=== PATIENT | female | born 1975 | race Two or more races ===

== ENCOUNTER 2018-12-15 23:08 | Emergency (ER) | payer OTHER ==
[~2018-12-15] VITALS: Ht 177.8 cm; Wt 104.3 kg
--- NOTE | 2018-12-15 23:20 | NUR ---
Received pt. in bed 3 A/O x 4 speaking clearly in full complete sentences. Lying supine on gurney HOB elevated 45 degrees. Stated to this travel writer for the past 2 weeks has had mid pelvic pain that comes and goes and sharp and when it comes it is 10/10. Stated that she tried to see her primary MD but he is on vacation. Awaiting to be seen by Dr. Dimas.
[2018-12-16 00:41] LABS: *BILIRUBIN,URIN NEGATIVE (NEGATIVE); *BLOOD, URINE NEGATIVE (NEGATIVE); *CLARITY,URINE CLEAR (CLEAR); *COLOR,URINE YELLOW (YELLOW); *KETONES,URINE NEGATIVE (NEGATIVE); *UROBILINOGEN,URINE 0.2 E.U./dl (NORMAL); LEUKOCYTE ESTERASE ,URINE NEGATIVE (NEGATIVE); NITRITE, URINE NEGATIVE (NEGATIVE); UGLUCOSE NEGATIVE (NEGATIVE)
[2018-12-16 00:54] LABS: *URINE HCG, QUAL NEGATIVE (NEGATIVE)
[2018-12-16 00:56] LABS: BACTERIA,URINE MANY /HPF (NONE SEEN); RBC,URINE 0-3 /HPF (0-3); SQUAMOUS EPITHELIAL CELL,UR MANY /HPF (NONE SEEN); WBC,URINE 0-3 /HPF (0-3)
[2018-12-19 11:08] LABS: *GC NAA Negative (Negative); *TRIC.VAG. NAA Negative (Negative)
== END 2018-12-16 00:44 | disposition home or self-care (01) ==
LOC: EDBD 23:08 → ER 23:08
DX: N90.89 Other specified noninflammatory disorders of vulva and perineum (principal)
CPT/HCPCS: 36415; 84703; 86592; 86803; 87491; 87536; 87806; A4663

== ENCOUNTER 2019-02-17 01:27 | Emergency (ER) | payer OTHER ==
[~2019-02-17] VITALS: Ht 177.8 cm; Wt 99.8 kg
--- NOTE | 2019-02-17 01:41 | NUR ---
Dr. Man at bedside for MSE.
--- NOTE | 2019-02-17 01:52 | NUR ---
Xray at bedside.
[2019-02-17] MEDS ORDERED: KETOROLAC TROMETHAMINE 60 MG INJ IM ONE ×2 (02:12→02:15)
--- NOTE | 2019-02-17 02:14 | NUR ---
Patient discharged to home in stable conditon. Written and verbal after care instructions given. Patient verbalizes understanding of instructions. Pt ambulated out of ER with steady gait, no acute signs of distress, VSS, all belongings taken.
[2019-02-17 02:15] VITALS: BP 115/70
== END 2019-02-17 02:16 | disposition home or self-care (01) ==
LOC: ER 01:32
DX: M72.2 Plantar fascial fibromatosis (principal)
CPT/HCPCS: 73630; 96372; 99283; J1885; A4663

== ENCOUNTER 2019-07-18 00:42 | Emergency (ER) | payer OTHER ==
[~2019-07-18] VITALS: Ht 177.8 cm; Wt 104.3 kg
--- NOTE | 2019-07-18 01:25 | NUR ---
Dr. Man at bedside for MSE
--- NOTE | 2019-07-18 01:27 | NUR ---
Patient ambulating with steady gait. A&O x4. c/o cough and fever. no episodes noted. Breathing even and unlabored. denies any SOB. speech is clear and able to make needs known / follow commands. Denies any / GI distress.
[2019-07-18] MEDS ORDERED: AZITHROMYCIN 250 MG TABLET ONE (01:45)
[2019-07-18] MEDS ORDERED: AZITHROMYCIN 250 MG TABLET PO ONE (01:45)
--- NOTE | 2019-07-18 02:14 | NUR ---
Patient discharged to home in stable conditon. Written and verbal after care instructions given. Patient verbalizes understanding of instructions. patient ambulating with steady gait
[2019-07-18 02:17] VITALS: BP 133/76
== END 2019-07-18 02:14 | disposition home or self-care (01) ==
LOC: ER 00:44
DX: J06.9 Acute upper respiratory infection, unspecified (principal)
CPT/HCPCS: A4663; Q0144

== ENCOUNTER 2019-09-15 21:36 | Emergency (ER) | payer OTHER ==
[~2019-09-15] VITALS: Ht 177.8 cm; Wt 99.8 kg
--- NOTE | 2019-09-15 22:25 | NUR ---
Dr. Wheeler at bedside for MSE.
[2019-09-15] MEDS ORDERED: HYDROMORPHONE 1 MG/1 ML DISP.SYRIN IM ONE (22:30)
[2019-09-15] MEDS ORDERED: ONDANSETRON ODT 4 MG TAB.RAPDIS SL ONE (22:30)
[2019-09-15] MEDS ORDERED: HYDROMORPHONE 2 MG/1 ML DISP.SYRIN ONE (22:30)
[2019-09-15] MEDS ORDERED: ONDANSETRON ODT 4 MG TAB.RAPDIS ONE (22:30)
[2019-09-15] MEDS ORDERED: MAG HYDROX/AL HYDROX/SIMETH 30 ML LIQUID UDC ONE (22:40)
[2019-09-15] MEDS ORDERED: MAG HYDROX/AL HYDROX/SIMETH 30 ML LIQUID UDC PO ONE (22:45)
[2019-09-15 23:23] VITALS: BP 135/75
== END 2019-09-15 23:24 | disposition home or self-care (01) ==
LOC: ER 21:37
DX: M54.41 Lumbago with sciatica, right side (principal)
CPT/HCPCS: 96372; 99283; J1170; Q0162

== ENCOUNTER 2019-09-29 19:21 | Emergency (ER) | payer OTHER ==
[~2019-09-29] VITALS: Ht 177.8 cm; Wt 99.8 kg
[2019-09-29 22:01] LABS: *BILIRUBIN,URIN NEGATIVE (NEGATIVE); *CLARITY,URINE CLEAR (CLEAR); *COLOR,URINE YELLOW (YELLOW); *KETONES,URINE TRACE (NEGATIVE); LEUKOCYTE ESTERASE ,URINE NEGATIVE (NEGATIVE); NITRITE, URINE NEGATIVE (NEGATIVE); PH,URINE 7.5 (5.0-8.0); UGLUCOSE NEGATIVE (NEGATIVE)
[2019-09-29 22:04] LABS: *BLOOD, URINE TRACE (NEGATIVE)
[2019-09-29 22:09] LABS: BACTERIA,URINE FEW /HPF (NONE SEEN); SQUAMOUS EPITHELIAL CELL,UR FEW /HPF (NONE SEEN); WBC,URINE 0-3 /HPF (0-3)
[2019-09-29] MEDS ORDERED: ONDANSETRON ODT 4 MG TAB.RAPDIS ONE (22:43)
[2019-09-29] MEDS ORDERED: KETOROLAC TROMETHAMINE 60 MG INJ IM ONE ×2 (22:44→22:45)
[2019-09-29] MEDS ORDERED: HYDROMORPHONE 1 MG/1 ML DISP.SYRIN ONE ×2 (22:44→23:34)
[2019-09-29] MEDS ORDERED: ONDANSETRON ODT 4 MG TAB.RAPDIS SL ONE (22:45)
[2019-09-29] MEDS ORDERED: HYDROMORPHONE 1 MG/1 ML DISP.SYRIN IM ONE ×2 (22:45→23:30)
--- NOTE | 2019-09-29 23:25 | NUR ---
PATIENT STATES AFTER 1ST DOSE OF DILAUDID PAIN IS NOW 5/10 FROM 05/04. REQUESTING MORE PAIN MEDS.
[2019-09-30] MEDS ORDERED: ONDANSETRON ODT 4 MG TAB.RAPDIS ONE (00:10)
[2019-09-30] MEDS ORDERED: ONDANSETRON ODT 4 MG TAB.RAPDIS SL ONE (00:15)
--- NOTE | 2019-09-30 00:17 | NUR ---
Patient discharged to home in stable conditon WITH DAUGHTER TAKING PATIENT HOME. Written and verbal after care instructions given. Patient verbalizes understanding of instructions. WALKED OUT OF ER WITH NO DISTERESS NOTED.
[2019-09-30 00:21] VITALS: BP 138/75
== END 2019-09-30 00:21 | disposition home or self-care (01) ==
LOC: ER 19:21
DX: M54.41 Lumbago with sciatica, right side (principal)
CPT/HCPCS: 81000; 81001; 96372 ×3; 99284; J1170 ×2; J1885; A4663; Q0162

== ENCOUNTER 2019-10-07 01:45 | Emergency (ER) | payer MEDICAID, OTHER ==
[~2019-10-07] VITALS: Ht 177.8 cm; Wt 104.3 kg
--- NOTE | 2019-10-07 02:10 | NUR ---
PATIENT WAS MSE BY DR PARSON IN ROOM 03A. PATIENT A & O X3.
[2019-10-07] MEDS ORDERED: OXYCODONE/APAP 5-325 MG TABLET PO ONE (02:15)
[2019-10-07] MEDS ORDERED: OXYCODONE/APAP 5-325 MG TABLET ONE (02:18)
[2019-10-07] MEDS ORDERED: ONDANSETRON ODT 4 MG TAB.RAPDIS ONE (02:21)
--- NOTE | 2019-10-07 02:24 | NUR ---
Patient discharged to home in stable condition. Written and verbal after care instructions given. Patient verbalizes understanding of instructions.
[2019-10-07 02:27] VITALS: BP 108/78
[2019-10-07] MEDS ORDERED: ONDANSETRON ODT 4 MG TAB.RAPDIS SL ONE (02:30)
== END 2019-10-07 02:28 | disposition home or self-care (01) ==
LOC: ER 01:53
DX: M54.40 Lumbago with sciatica, unspecified side (principal); G89.29 Other chronic pain
CPT/HCPCS: A4663; Q0162

== ENCOUNTER 2020-07-05 16:40 | Emergency (ER) | payer MEDICAID, OTHER ==
[~2020-07-05] VITALS: Ht 177.8 cm; Wt 90.7 kg
--- NOTE | 2020-07-05 17:30 | NUR ---
Patient discharged to home in stable condition. Written and verbal after care instructions given. Patient verbalizes understanding of instructions. Stressed follow up or return to ER for worsening s/s.
== END 2020-07-05 17:30 | disposition home or self-care (01) ==
LOC: ER 16:40
DX: B37.2 Candidiasis of skin and nail (principal); Z76.0 Encounter for issue of repeat prescription; G89.29 Other chronic pain; M54.9 Dorsalgia, unspecified
CPT/HCPCS: A4663

== ENCOUNTER 2022-02-17 23:34 | Emergency (ER) | payer MEDICAID ==
[~2022-02-17] VITALS: Ht 180.3 cm; Wt 95.3 kg
[~2022-02-17 23:34] MED LIST: ONDA4TAB5 GT; OXYC-128 PO
--- NOTE | 2022-02-18 02:00 | NUR ---
Patient seen by
[2022-02-18] MEDS ORDERED: HYDROMORPHONE 1 MG/1 ML DISP.SYRIN IM ONE (02:45)
[2022-02-18] MEDS ORDERED: KETOROLAC TROMETHAMINE 60 MG INJ IM ONE ×2 (02:45→02:58)
[2022-02-18] MEDS ORDERED: ONDANSETRON ODT 4 MG TAB.RAPDIS SL ONE (02:45)
[2022-02-18] MEDS ORDERED: HYDROMORPHONE 1 MG/1 ML DISP.SYRIN ONE (02:58)
[2022-02-18] MEDS ORDERED: ONDANSETRON ODT 4 MG TAB.RAPDIS ONE (02:58)
[2022-02-18] MEDS ORDERED: ONDA4TAB5 PO (03:05)
[2022-02-18] MEDS ORDERED: HYDR-4209 PO (03:05)
--- NOTE | 2022-02-18 03:22 | NUR ---
patient provided with dcd education and prescription for both her and her 9 year old, and she requested to have a prescription for dilaudid.
[2022-02-18] MEDS ORDERED: OXYC-128 PO (03:23)
== END 2022-02-18 04:02 | disposition home or self-care (01) ==
LOC: ER 23:37
DX: R51.9 Headache, unspecified (principal); J02.9 Acute pharyngitis, unspecified; Z20.822 Contact with and (suspected) exposure to COVID-19; M54.9 Dorsalgia, unspecified
CPT/HCPCS: 99284; 87426; 96372 ×2; J1885; J1170; Q0162

== ENCOUNTER 2022-07-27 22:16 | Emergency (ER) | payer MEDICAID ==
[~2022-07-27 22:16] MED LIST changes: +ONDA4TAB5 PO
[2022-07-28] MEDS ORDERED: KETOROLAC TROMETHAMINE 15 MG INJ IVP ONE (01:15)
[2022-07-28] MEDS ORDERED: ACETAMINOPHEN 325 MG TABLET PO ONE (01:15)
[2022-07-28] MEDS ORDERED: IV NORMAL SALINE 500 ML BAG IV ONE (01:15)
[2022-07-28] MEDS ORDERED: LIDOCAINE VISCUS 2% 15 ML UDC MM ONE (01:30)
--- NOTE | 2022-07-28 01:30 | NUR ---
Pt. walked in c/o headache, dizziness, chills
[2022-07-28] MEDS ORDERED: ACETAMINOPHEN 325 MG TABLET ONE (02:03)
[2022-07-28] MEDS ORDERED: LIDOCAINE VISCUS 2% 15 ML UDC ONE (02:04)
[2022-07-28] MEDS ORDERED: KETOROLAC TROMETHAMINE 15 MG INJ ONE (02:04)
[2022-07-28] MEDS ORDERED: HYDROCODONE/APAP 10-325 MG TABLET PO ONE (02:45)
[2022-07-28] MEDS ORDERED: FAMOTIDINE. 20 MG/2 ML VIAL IV ONE ×2 (02:45→02:52)
[2022-07-28] MEDS ORDERED: MAG HYDROX/AL HYDROX/SIMETH 30 ML LIQUID UDC PO ONE (02:45)
[2022-07-28] MEDS ORDERED: HYDROCODONE/APAP 10-325 MG TABLET ONE (02:51)
[2022-07-28] MEDS ORDERED: MAG HYDROX/AL HYDROX/SIMETH 30 ML LIQUID UDC ONE (02:51)
[2022-07-28] MEDS ORDERED: AZIT250T13 PO (05:03)
[2022-07-28] MEDS ORDERED: NAPR-1192 PO (05:03)
--- NOTE | 2022-07-28 05:58 | NUR ---
pt. asleep at this time. VSS
[2022-07-28 07:00] VITALS: BP 118/80
== END 2022-07-28 07:00 | disposition home or self-care (01) ==
LOC: ER 22:18
DX: J20.9 Acute bronchitis, unspecified (principal); Z20.822 Contact with and (suspected) exposure to COVID-19
CPT/HCPCS: 99284; 96374; 71046; 96375; 87426; 87400; 84702; 36415; J3490; J1885; J7040

== ENCOUNTER 2023-02-07 17:06 | Emergency (ER) | payer MEDICAID ==
[~2023-02-07] VITALS: Ht 177.8 cm; Wt 99.8 kg
[~2023-02-07 17:06] MED LIST changes: +AZIT250T13 PO; +NAPR-1192 PO
--- NOTE | 2023-02-07 17:21 | NUR ---
Patient ambulated to room #4, provided urine cup for specimen, was seen by ER provider and informed of plan of care. No s/s of any distress noted at this time.
[2023-02-07 17:31] LABS: *BILIRUBIN,URIN NEGATIVE (NEGATIVE); *CLARITY,URINE CLEAR (CLEAR); *COLOR,URINE YELLOW (YELLOW); *KETONES,URINE NEGATIVE (NEGATIVE); *UROBILINOGEN,URINE 0.2 E.U./dl (NORMAL); LEUKOCYTE ESTERASE ,URINE NEGATIVE (NEGATIVE); NITRITE, URINE NEGATIVE (NEGATIVE); UGLUCOSE NEGATIVE (NEGATIVE)
[2023-02-07 17:35] LABS: *BLOOD, URINE NEGATIVE (NEGATIVE)
--- NOTE | 2023-02-07 17:35 | NUR ---
Lab at bedside.
[2023-02-07 17:37] LABS: *URINE HCG, QUAL NEGATIVE (NEGATIVE)
[2023-02-07 17:45] LABS: HEMATOCRIT 44.7 % (31.2-41.9); MEAN CORPUSCULAR HEMOGLOBIN 27.9 uug (24.7-32.8); MEAN CORPUSCULAR VOLUME 85.6 fL (75.5-95.3); PLATELET COUNT (AUTO) 216 K/uL (179-408)
[2023-02-07 18:02] LABS: BILIRUBIN,DIRECT 0.2 mg/dL (0.0-0.2); CREATININE 0.7 mg/dL (0.6-1.3); POTASSIUM 3.8 mmol/L (3.5-5.1); TOTAL PROTEIN, SERUM 7.1 g/dL (6.4-8.2)
--- NOTE | 2023-02-07 18:06 | NUR ---
Ultrasound at bedside.
[2023-02-07] MEDS ORDERED: HYDROMORPHONE 1 MG/1 ML DISP.SYRIN IV ONE (18:45)
[2023-02-07] MEDS ORDERED: ONDANSETRON 4 MG/2 ML VIAL IV ONE (18:45)
[2023-02-07] MEDS ORDERED: IOHEXOL 300MG/ML 100 ML INFUS..BTL ONE (18:48)
[2023-02-07] MEDS ORDERED: SWABABLE VALVE TRANSFER SET EA MC ONE (18:48)
[2023-02-07] MEDS ORDERED: IV NORMAL SALINE 250 ML IV ONE (18:48)
[2023-02-07] MEDS ORDERED: HYDROMORPHONE 1 MG/1 ML DISP.SYRIN ONE (18:51)
[2023-02-07] MEDS ORDERED: ONDANSETRON 4 MG/2 ML VIAL ONE (18:51)
--- NOTE | 2023-02-07 19:01 | NUR ---
#20g established in right forearm, medicated as per order, off unit at this time for CT.
--- NOTE | 2023-02-07 19:24 | NUR ---
PATIENT HAS RETURNED FROM CT, AWAITING MD RE-EVAL.
[2023-02-07] MEDS ORDERED: OXYC-133 PO (20:26)
--- NOTE | 2023-02-07 20:32 | NUR ---
Patient discharged to home in stable condition. Written and verbal after care instructions given. Patient verbalizes understanding of instructions. Stressed follow up or return to ER for worsening s/s. Patient out of ER with steady gait, no acute signs of distress, VSS, all belongings taken, IV site discontinued, provided with copies of lab and CT results.
[2023-02-07 20:33] VITALS: BP 146/89; O2SAT 97
== END 2023-02-07 20:33 | disposition home or self-care (01) ==
LOC: ER 17:08
DX: R10.31 Right lower quadrant pain (principal); G89.29 Other chronic pain; M54.9 Dorsalgia, unspecified; Z79.2 Long term (current) use of antibiotics; Z79.899 Other long term (current) drug therapy
CPT/HCPCS: 99285; 74177; 96374; 76856; 96375; 80076; 80048; 81003; 84703; 83690; 85025; 36415; J2405; Q9967; J1170; A4663

== ENCOUNTER 2024-01-14 02:06 | Emergency (ER) | payer MEDICAID ==
[~2024-01-14] VITALS: Ht 175.3 cm; Wt 113.4 kg
[~2024-01-14 02:06] MED LIST changes: +OXYC-133 PO
[2024-01-14] MEDS ORDERED: METOCLOPRAMIDE HCL 10 MG/2 ML VIAL IV ONE (02:45)
[2024-01-14] MEDS ORDERED: KETOROLAC TROMETHAMINE 30 MG INJ IVP ONE (02:45)
[2024-01-14 02:53] LABS: BASOPHILS # (AUTO) 0.1 K/UL (0.0-0.2); DIFFERENTIAL COMMENT 1; EOSINOPHILS # (AUTO) 0.2 K/uL (0.0-0.7); EOSINOPHILS % (AUTO) 2.6 % (0.0-7.0); HEMATOCRIT 42.3 % (31.2-41.9); HEMOGLOBIN 14.1 g/dL (10.9-14.3); LYMPHOCYTES # (AUTO) 2.4 K/uL (0.8-4.8); LYMPHOCYTES % (AUTO) 32.8 % (20.5-51.5); MEAN CORPUSCULAR HEMOGLOBIN 29.5 uug (24.7-32.8); MEAN CORPUSCULAR HGB CONC 33 g/dL (32.3-35.6); MEAN CORPUSCULAR VOLUME 88.3 fL (75.5-95.3); MONOCYTES # (AUTO) 0.6 K/uL (0.1-1.30); MONOCYTES % (AUTO) 8.4 % (0.0-11.0); NEUTROPHILS # (AUTO) 4.1 K/uL (1.8-8.9); NEUTROPHILS % (AUTO) 55.2 % (38.5-71.5); PLATELET COUNT (AUTO) 212 K/uL (179-408); RED BLOOD CELL COUNT(AUTO) 4.79 MIL/uL (3.63-4.92); RED CELL DISTRIBUTION WIDTH 13.4 % (12.3-17.7); WHITE BLOOD COUNT (AUTO) 7.3 K/uL (3.8-11.8)
[2024-01-14 03:01] LABS: CALCIUM 8.9 mg/dL (8.5-10.1); CARBON DIOXIDE 28 mmol/L (21-32); CHLORIDE 104 mmol/L (98-107); CREATININE 0.9 mg/dL (0.6-1.3); GLUCOSE 115 mg/dL (74-106); POTASSIUM 3.8 mmol/L (3.5-5.1); SODIUM SERUM 142 mmol/L (136-145); UREA NITROGEN, BLOOD 20 mg/dL (7-18)
[2024-01-14 03:10] LABS: ALANINE AMINOTRANSFERASE 54 U/L (14-59); ALBUMIN 3.4 g/dL (3.4-5.0); ALKALINE PHOSPHATASE 95 U/L (50-136); ASPARTATE AMINOTRANSFERASE 22 U/L (15-37); BILIRUBIN,DIRECT 0.1 mg/dL (0.0-0.2); BILIRUBIN,TOTAL 0.6 mg/dL (0.2-1.0); TOTAL PROTEIN, SERUM 7.2 g/dL (6.4-8.2)
[2024-01-14] MEDS ORDERED: METOCLOPRAMIDE HCL 10 MG TABLET ONE (03:17)
[2024-01-14] MEDS ORDERED: KETOROLAC TROMETHAMINE 60 MG INJ IM ONE (03:17)
[2024-01-14] MEDS: IV NORMAL SALINE 1000 ML BAG IV ONE (03:50)
[2024-01-14] MEDS: METOCLOPRAMIDE HCL 10 MG TABLET PO ONE (03:55)
[2024-01-14] MEDS: KETOROLAC TROMETHAMINE 60 MG INJ IM ONE (03:55)
[2024-01-14] MEDS ORDERED: ONDANSETRON 4 MG/2 ML VIAL ONE (04:18)
[2024-01-14] MEDS ORDERED: MORPHINE SULFATE 4 MG/1 ML DISP.SYRIN ONE (04:19)
[2024-01-14] MEDS: ONDANSETRON 4 MG/2 ML VIAL IV ONE (04:25)
[2024-01-14] MEDS: MORPHINE SULFATE 4 MG/1 ML DISP.SYRIN IV ONE (04:25)
[2024-01-14] MEDS ORDERED: IV NORMAL SALINE 250 ML IV ONE (05:07)
[2024-01-14] MEDS ORDERED: IOHEXOL 350 100 ML INFUS..BTL ONE (05:07)
[2024-01-14] MEDS ORDERED: SWABABLE VALVE TRANSFER SET EA MC ONE (05:07)
[2024-01-14] MEDS ORDERED: HYDR-3980 PO (06:12)
[2024-01-14 06:59] VITALS: BP 125/78; TEMP 97.8; O2SAT 97
== END 2024-01-14 07:00 | disposition home or self-care (01) ==
LOC: ER 02:17
DX: R51.9 Headache, unspecified (principal); Z79.899 Other long term (current) drug therapy; Z79.1 Long term (current) use of non-steroidal anti-inflammatories (NSAID); Z79.2 Long term (current) use of antibiotics
CPT/HCPCS: 99285; 70496; 96374; 96361; 96375; 80076; 80048; 85025; 85730; 84484; 36415; 93005; 70498; 70450; 96372; J1885; J2405; Q9967; J2270; J7040; A4606; A4663; J8597

== ENCOUNTER 2025-03-07 00:45 | Emergency (ER) | payer MEDICAID ==
[~2025-03-07] VITALS: Ht 175.3 cm; Wt 104.3 kg
[~2025-03-07 00:45] MED LIST changes: +HYDR-3980 PO
[2025-03-07 00:49] VITALS: BP 135/79; O2SAT 97
[2025-03-07] MEDS ORDERED: KETOROLAC TROMETHAMINE 30 MG INJ ONE (01:32)
[2025-03-07] MEDS ORDERED: HYDROCODONE/APAP 5-325MG TABLET ONE (01:32)
[2025-03-07] MEDS: KETOROLAC TROMETHAMINE 30 MG INJ IM ONE (01:39)
[2025-03-07] MEDS: HYDROCODONE/APAP 5-325MG TABLET PO ONE (01:40)
[2025-03-07 01:48] LABS: *BILIRUBIN,URIN NEGATIVE (NEGATIVE); *BLOOD, URINE 1+ (NEGATIVE); *CLARITY,URINE CLEAR (CLEAR); *COLOR,URINE YELLOW (YELLOW); *KETONES,URINE TRACE (NEGATIVE); *PROTEIN,URINE NEGATIVE (NEGATIVE); *UROBILINOGEN,URINE 0.2 E.U./dl (NORMAL); LEUKOCYTE ESTERASE ,URINE TRACE (NEGATIVE); NITRITE, URINE NEGATIVE (NEGATIVE); SQUAMOUS EPITHELIAL CELL,UR MODERATE /HPF (NONE SEEN); UGLUCOSE NEGATIVE (NEGATIVE)
[2025-03-07 01:57] LABS: *URINE HCG, QUAL NEGATIVE (NEGATIVE)
[2025-03-07] MEDS ORDERED: NAPR-1009 PO (02:23)
[2025-03-07] MEDS ORDERED: CEPH500C2 PO (02:23)
[2025-03-07] MEDS ORDERED: PHEN-704 PO (02:23)
[2025-03-07] MEDS ORDERED: CLOT15CR5 TP (02:23)
[2025-03-07] MEDS ORDERED: NEOMY/BACITRA/POLYMYXIN B OINT UD PACKET TP ONE ×2 (02:25→02:33)
[2025-03-07] MEDS ORDERED: PHENAZOPYRIDINE HCL 100 MG TABLET ONE (02:25)
[2025-03-07] MEDS: PHENAZOPYRIDINE HCL 100 MG TABLET PO ONE (02:26)
[2025-03-07] MEDS: NEOMY/BACITRA/POLYMYXIN B OINT UD PACKET TP ONE (02:26)
== END 2025-03-07 02:35 | disposition home or self-care (01) ==
LOC: ER 00:50
DX: N39.0 Urinary tract infection, site not specified (principal); L30.4 Erythema intertrigo; M72.2 Plantar fascial fibromatosis; R39.15 Urgency of urination; Z88.7 Allergy status to serum and vaccine
CPT/HCPCS: 99284; 81001; 84703; 96372; J1885; A4606; A4663